=== PATIENT | female | born 2000 | race Caucasian/White ===

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

== ENCOUNTER 2024-11-25 16:25 | Emergency (ER) | payer BC ==
[~2024-11-25] VITALS: Ht 157.5 cm; Wt 74.8 kg
[2024-11-25] MEDS ORDERED: TRIA60LO13 TP (17:08)
[2024-11-25 17:15] VITALS: BP 119/82; TEMP 97.8; O2SAT 100
== END 2024-11-25 17:17 | disposition home or self-care (01) ==
LOC: ER 16:25
DX: R21 Rash and other nonspecific skin eruption (principal); Z88.7 Allergy status to serum and vaccine
CPT/HCPCS: A4606; A4663

== ENCOUNTER 2025-01-16 15:23 | Emergency (ER) | payer BC ==
[~2025-01-16] VITALS: Ht 157.5 cm; Wt 74.8 kg
[~2025-01-16 15:23] MED LIST: TRIA60LO13 TP
[2025-01-16] MEDS ORDERED: KETO15CR2 TP (15:41)
[2025-01-16 16:05] VITALS: BP 132/81; O2SAT 99
== END 2025-01-16 16:07 | disposition home or self-care (01) ==
LOC: ER 15:26
DX: B35.9 Dermatophytosis, unspecified (principal); L71.9 Rosacea, unspecified; Z88.7 Allergy status to serum and vaccine
CPT/HCPCS: A4606; A4663